=== PATIENT | female | born 1960 | race Caucasian/White ===

== ENCOUNTER → 2024-11-01 | Outpatient (CLI) | payer BC, SELFPAY ==
--- NOTE | 2024-11-01 12:54 | ECHOD_ITS ---
Reason For Study : DYSPNEA/SOB Procedure This was a 2D Doppler, Color Flow transthoracic echocardiogram. Exam performed in department. Left Ventricle Normal size and thickness. The LV systolic function is normal. EF is 65 %. No evidence for diastolic dysfunction. Right Ventricle Normal right ventricle. Atria There is mild biatrial dilatation. Bubble contrast study is negative for PFO/ASD. Mitral Valve Trivial mitral valve insufficiency. Tricuspid Valve Mild tricuspid valve insufficiency. Normal pulmonary artery pressure. Aortic Valve Mild diffuse aortic valve thickening. There is no aortic stenosis. No aortic valve insufficiency. Pulmonic Valve The pulmonic valve is not well visualized. Great Vessels Normal sized aortic root. Pericardium/Pleural No pericardial effusion. Medication 22 gauge I.V. with prn adaptor inserted into right arm. Performed a rapid injection of agitated mix of 9 cc saline and 1cc air to assess for atrial septal defect. MMode/2D Measurements & Calculations LVIDd: 3.9 cm IVSd: 1.0 cm Ao root diam: 2.9 cm LVIDs: 2.8 cm LVPWd: 1.00 cm RVDd: 3.1 cm FS: 29.3 % LAV(MOD-bp): 27.1 ml LVAd ap4: 20.8 cm2 SV(MOD-sp4): 33.8 ml LAV(MOD-bp) Indexed: 15.8 ml/m2 LVLd ap4: 6.7 cm SI(MOD-sp4): 19.7 ml/m2 LAV(MOD-sp2): 28.7 ml EDV(MOD-sp4): 53.5 ml LAV(MOD-sp4): 24.2 ml EDV(sp4-el): 54.7 ml LVAs ap4: 11.1 cm2 LVLs ap4: 5.7 cm ESV(MOD-sp4): 19.7 ml ESV(sp4-el): 18.2 ml EF(MOD-sp4): 63.3 % EF(sp4-el): 66.7 % SV(sp4-el): 36.5 ml LA A4 area: 11.8 cm2 LA dimension(2D): 3.0 cm RA A4 area: 11.2 cm2 TAPSE: 2.1 cm Time Measurements MV dec time: 0.20 sec Doppler Measurements & Calculations MV E max jerel: 77.5 cm/sec Lat Peak E' Jerel: 8.2 cm/sec Med Peak E' Jerel: 7.9 cm/sec MV A max jerel: 74.0 cm/sec E/E' lat: 9.4 E/E' med: 9.8 MV E/A: 1.0 Ao V2 max: 122.0 cm/sec LV V1 max: 92.1 cm/sec PA V2 max: 67.2 cm/sec Ao max P.0 mmHg LV V1 max P.4 mmHg TR max jerel: 248.1 cm/sec TR max P.6 mmHg ECHO/Echo Complete Interpretation Summary The LV systolic function is normal. EF is 65 %. No evidence for diastolic dysfunction. There is mild biatrial dilatation. Mild tricuspid valve insufficiency. Mild diffuse aortic valve thickening. Bubble contrast study is negative for PFO/ASD. Ordering Physician: Michael Pate Referring Physician: HOMAR GREGORY Performed By: Sylvie Nolasco RDCS
== END | disposition home or self-care (01) ==
LOC: CVS 12:53
PROVIDERS: PCP Internal Medicine; Referring Provider Internal Medicine Cardiovascular Disease; Visit Provider Internal Medicine Cardiovascular Disease
DX: R06.02 Shortness of breath (principal)
CPT/HCPCS: 93306; A4216

== ENCOUNTER → 2025-01-27 | Outpatient (CLI) | payer BC, SELFPAY ==
[2025-01-27 16:56] LABS: AST(SGOT) 24 U/L (<=31); Alanine Aminotransfer ALT/SGPT 25 U/L (<=34); Albumin, Serum 4.3 g/dL (3.4-4.8); Alkaline Phosphatase 104 U/L (35-104); Anion Gap 11 (5-15); BUN 22 mg/dL (4-19); BUN/Creat Ratio 22.5 RATIO (10-20); Calcium,Total 9.9 mg/dL (7.6-11.0); Carbon Dioxide 26.2 mmol/L (21.0-32.0); Chloride 103 mmol/L (98-108); Cholesterol 212 mg/dL (<=200); Free T3 2.8 pg/mL (2.18-3.98); Globulin 3.0 g/dL (2.2-4.2); Glucose 95 mg/dL (70-99); Low Density Lipoprotein Calc. 97 mg/dL; Potassium 4.1 mmol/L (3.3-5.1); Triglycerides 394 mg/dL; Very Low Density Lipoprotein 79 mg/dL (5-40); cholesterol:hdl ratio screen 5.86
== END | disposition home or self-care (01) ==
LOC: LAB 15:18
PROVIDERS: PCP Internal Medicine; Referring Provider Physician Assistant Medical; Visit Provider Physician Assistant Medical
DX: I48.0 Paroxysmal atrial fibrillation (principal); I10 Essential (primary) hypertension; E78.2 Mixed hyperlipidemia
CPT/HCPCS: 36415; 80053; 80061; 84439; 84443; 84481